=== PATIENT | male | born 1960 | race American Indian/Alaskan Native ===

== ENCOUNTER 2018-08-13 13:57 | Emergency (ER) | payer BC ==
[2018-08-13] MEDS ORDERED: ASPIRIN PO ONE (14:07)
--- NOTE | 2018-08-13 14:08 | Event Note ---
ED Screening Note Date of service: 08/13/18 Time: 14:05 ED Screening Note: This is a 58 y.o. M. that presents to the ER with chest pain radiating to LUE and left sided of neck x 2 days. No PMH This initial assessment/diagnostic orders/clinical plan/treatment(s) is/are subject to change based on patients health status, clinical progression and re- assessment by fellow clinical providers in the ED. Further treatment and workup at subsequent clinical providers discretion. Patient/guardian urged not to elope from the ED as their condition may be serious if not clinically assessed and managed. Initial orders include: labs, ekg, and cxr
[2018-08-13 15:02] LABS: Basophils % (Auto) 0.3 % (0.0-1.8); Eosinophils # (Auto) 0.1 K/mm3 (0.0-0.4); Eosinophils % (Auto) 1.3 % (0.0-4.3); Hematocrit 47.6 % (35.5-45.6); Hemoglobin 15.6 gm/dl (11.8-15.2); Lymphocytes # (Auto) 1.9 K/mm3 (1.2-5.4); Lymphocytes % (Auto) 24.8 % (13.4-35.0); Mean Corpuscular HGB Conc 33 % (32-34); Mean Corpuscular Volume 85 fl (84-94); Monocytes # (Auto) 0.6 K/mm3 (0.0-0.8); Monocytes % (Auto) 7.5 % (0.0-7.3); Platelet Count 202 K/mm3 (140-440); Red Blood Count 5.63 M/mm3 (3.65-5.03); Red Cell Distribution Width 13.8 % (13.2-15.2)
--- NOTE | 2018-08-13 15:04 | XRay Report ---
CHEST TWO VIEWS: 08/13/18 13:57:00 CLINICAL: Chest pain. COMPARISON: None FINDINGS: Normal heart and pulmonary vasculature. The lungs are normally expanded and clear. However, the left costophrenic angle is not included on the frontal view. The bones and soft tissues are unremarkable. IMPRESSION: No acute cardiopulmonary process.
[2018-08-13 15:25] LABS: BUN/Creatinine Ratio 13; Blood Urea Nitrogen 13 mg/dL (9-20); Calcium 9.3 mg/dL (8.4-10.2); Hemolysis Index 14
[2018-08-13] MEDS ORDERED: ULTRAM PO ONE (15:51)
--- NOTE | 2018-08-13 16:14 | Emergency Department Report ---
ED Chest Pain HPI - General Chief Complaint: Chest Pain Stated Complaint: CHEST PAIN Time Seen by Provider: 08/13/18 14:05 Source: patient Mode of arrival: Ambulatory Limitations: No Limitations - History of Present Illness Initial Comments: Patient is a 58-year-old gentleman who is presenting with left-sided chest pain for the last 24 hours. Patient states that he has been under some stress but is having chest pain similar to chest pain he had several years ago and had a cardiac cath. Patient states that roughly 4-5 years ago he was having chest pain and had a cardiac cath but did not have lesions at that time he want to stenting. Patient has had medical management status. Patient states that chest pain is been a tight sensation in the left chest with some radiation into the left jaw and left shoulder. This is been constant. He denies any cough cold or congestion sore throat or fever. Patient has had some difficulty breathing. There is no pleuritic component. - Related Data Allergies Allergy/AdvReac Type Severity Reaction Status Date / Time No Known Allergies Allergy Unverified 08/13/18 13:58 Heart Score - HEART Score History: Moderately suspicious EKG: Non-specific Age: 45-65 Risk factors: 1-2 risk factors Troponin: < normal limit HEART Score: 4 ED Review of Systems ROS: Stated complaint: CHEST PAIN Other details as noted in HPI Comment: All other systems reviewed and negative ED Past Medical Hx - Past Medical History Previous Medical History?: Yes - Surgical History Additional Surgical History: ANKLE - Social History Smoking Status: Never Smoker ED Physical Exam - General Limitations: No Limitations General appearance: alert, in no apparent distress - Head Head exam: Present: atraumatic, normocephalic - Eye Eye exam: Present: normal appearance, PERRL, EOMI - ENT ENT exam: Present: mucous membranes moist - Neck Neck exam: Present: normal inspection - Respiratory Respiratory exam: Present: normal lung sounds bilaterally. Absent: respiratory distress, wheezes, rales, rhonchi, stridor - Cardiovascular Cardiovascular Exam: Present: regular rate, normal rhythm. Absent: systolic murmur, diastolic murmur, rubs, gallop - GI/Abdominal GI/Abdominal exam: Present: soft, normal bowel sounds. Absent: distended, tenderness, guarding, rebound - Rectal Rectal exam: Present: deferred - Extremities Exam Extremities exam: Present: normal inspection - Back Exam Back exam: Present: normal inspection - Neurological Exam Neurological exam: Present: alert, oriented X3 - Psychiatric Psychiatric exam: Present: normal affect, normal mood - Skin Skin exam: Present: warm, dry, intact, normal color. Absent: rash ED Course Vital Signs 08/13/18 14:06 Temperature 97.8 F Pulse Rate 72 Respiratory 16 Rate Blood Pressure 125/78 O2 Sat by Pulse 97 Oximetry ARMAND score - Armand Score Age > 65: (0) No Aspirin use within the Past 7 Days: (0) No 3 or more CAD Risk Factors: (0) No 2 or more Angina events in past 24 hrs: (1) Yes Known CAD with more than 50% Stenosis: (0) No Elevated Cardiac Markers: (0) No ST Deviation Greater than 0.5mm: (0) No ARMAND Score: 1 ED Medical Decision Making - Lab Data Result diagrams: 08/13/18 14:28 08/13/18 14:28 Lab Results 08/13/18 08/13/18 Range/Units 14:28 14:28 WBC 7.6 (4.5-11.0) K/mm3 RBC 5.63 H (3.65-5.03) M/mm3 Hgb 15.6 H (11.8-15.2) gm/dl Hct 47.6 H (35.5-45.6) % MCV 85 (84-94) fl MCH 28 (28-32) pg MCHC 33 (32-34) % RDW 13.8 (13.2-15.2) % Plt Count 202 (140-440) K/mm3 Lymph % (Auto) 24.8 (13.4-35.0) % [place] % (Auto) 7.5 H (0.0-7.3) % Eos % (Auto) 1.3 (0.0-4.3) % Baso % (Auto) 0.3 (0.0-1.8) % Lymph # 1.9 (1.2-5.4) K/mm3 [place] # 0.6 (0.0-0.8) K/mm3 Eos # 0.1 (0.0-0.4) K/mm3 Baso # 0.0 (0.0-0.1) K/mm3 Seg Neutrophils % 66.1 (40.0-70.0) % Seg Neutrophils # 5.0 (1.8-7.7) K/mm3 Sodium 143 (137-145) mmol/L Potassium 4.1 (3.6-5.0) mmol/L Chloride 107.0 (98-107) mmol/L Carbon Dioxide 24 (22-30) mmol/L Anion Gap 16 mmol/L BUN 13 (9-20) mg/dL Creatinine 1.0 (0.8-1.5) mg/dL Estimated GFR > 60 ml/min BUN/Creatinine Ratio 13 % Glucose 103 H (75-100) mg/dL Calcium 9.3 (8.4-10.2) mg/dL Troponin T < 0.010 (0.00-0.029) ng/mL - EKG Data -: EKG Interpreted by Me EKG shows normal: sinus rhythm, axis, intervals, QRS complexes Rate: normal (70) - EKG Data When compared to previous EKG there are: previous EKG unavailable 08/13/18 16:14 Patient with T-wave inversions laterally noted no ST segment elevations or depressions. - Radiology Data interpreted by me: Chest x-ray within normal limits - Medical Decision Making Patient has had continuous chest pain since yesterday. Patient does have some radiation of this pain shortness of breath. Patient has a heart school for does meet criteria for further evaluation and inpatient setting. We will attempt to place the patient on a manager monitoring. Patient given aspirin and Ultram for pain. Patient to be admitted to the hospitalist service. Critical care attestation.: If time is entered above; I have spent that time in minutes in the direct care of this critically ill patient, excluding procedure time. ED Disposition Clinical Impression: Unstable angina Disposition: OP ADMIT IP TO THIS HOSP Is pt being admited?: Yes Does the pt Need Aspirin: No Condition: Stable Instructions: Angina (ED) Time of Disposition: 16:15
[2018-08-13] MEDS ORDERED: ASPIRIN ONE (16:32)
[2018-08-13 17:57] LABS: Chol/HDL Ratio 2.43 %
[2018-08-13 19:54] VITALS: BP 130/81
--- NOTE | 2018-08-13 19:56 | Cat Scan Report ---
PROCEDURE: CT ANGIO CHEST TECHNIQUE: Computerized tomographic angiography of the chest was performed after the IV injection of iodinated nonionic contrast including image processing. The image data was postprocessed using 2-di mensional multiplanar reformatted (MPR) and 3-dimensional (MIP and/or volume rendered) techniques. Au tomated exposure control, adjustment of mA and/or kV according to patient size, or iterative reconstr uction dose optimization techniques were utilized. CT DOSE LENGTH PRODUCT: 802.7 mGycm HISTORY: pain COMPARISONS: None . FINDINGS: Heart and pericardium: Normal. Thoracic aorta: Normal. Pulmonary vasculature: Normal. Lymph nodes: No enlarged thoracic lymph nodes. Lungs: Normal. Pleural space: No effusion, thickening, or pneumothorax. Musculoskeletal structures: No significant abnormality. Upper abdominal structures: No significant abnormality. IMPRESSION: Negative no CT evidence of acute pulmonary embolus. This document is electronically signed by Zac Campa MD., August 13 2018 07:54:57 PM ET
--- NOTE | 2018-08-14 12:14 | Event Note ---
Date: 08/13/18 58 YO Male with PSA present to ED for evaluation on Atypical Chest pain. Pt seen and evaluated in ED and treated IAW Chest pain protocol. Serial cardiac enzymes, ekg, and telemetry monitoring were unremarkable for ischemia. CTA chest was negative for PE. . Pt medically optimized and discharged home. Pt instructed to f//u pcp 3-5 days, and F/U cardiology 3-5 days for further care. Pt counseled regarding risk factor reduction. Pt to f/u with PCP for age appropriate screening tests. Continue low cholester diet, and CAD risk factor modification. 15 minutes dedicated to Advance care planning instructions . Pt instructed to continue all prehospital medication as prescribed.. GENERAL: The patient is well-developed well-nourished male lying on stretcher not appearing to be in acute distress. [] HEENT: Normocephalic. Atraumatic. Extraocular motions are intact. Patient has moist mucous membranes. NECK: Supple. Trachea midline CHEST/LUNGS: Clear to auscultation. There is no respiratory distress noted. HEART/CARDIOVASCULAR: Regular. There is no tachycardia. There is no gallop rub or murmur. ABDOMEN: Abdomen is soft, nontender, nondistended. Patient has normal bowel sounds. There is no abdominal distention. SKIN: There is no rash. There is no edema. There is no diaphoresis. NEURO: The patient is awake, alert, and oriented. The patient is cooperative. The patient has normal speech, No tremors MUSCULOSKELETAL:RUE in sling, due to prior injury which was present on admission.
== END 2018-08-13 19:55 | disposition admitted as inpatient to this hospital (09) ==
LOC: ED 13:57
DX: I20.0 Unstable angina (principal)
CPT/HCPCS: 36415; 71046; 71275; 80048; 80061; 84484; 85025; 85379; 93005; 93010; 99285; Q9967